=== PATIENT | female | born 1960 | race Caucasian/White ===

== ENCOUNTER → 2018-07-22 10:07 | Outpatient (CLI) | payer MEDICARE, SELFPAY | LOC: RAD 10:09 | PROVIDERS: Family Provider Family Medicine; PCP Family Medicine; Visit Provider Specialist | DX: M19.112 Post-traumatic osteoarthritis, left shoulder (principal) | CPT/HCPCS: 20610; 77002; Q9967; J0702 ==

== ENCOUNTER → 2018-10-17 09:22 | Outpatient (CLI) | payer MEDICARE, SELFPAY ==
--- NOTE | 2018-10-17 08:00 | RAD_ITS ---
PROCEDURE: Fluoroscopic guided left shoulder Injection DATE: October 17, 2018 INDICATION: Female, 58 years old. Chronic left shoulder pain. PHYSICIAN: Jaziel Rodríguez M.D. MEDICATIONS: 12 mg of betamethasone and 4 cc of 1% lidocaine. 2% lidocaine administered subcutaneously for local anesthesia. ACCESS SITE: Left shoulder. NEEDLE: 22-gauge spinal needle. FLUOROSCOPY TIME (if supplied): (1:36) minutes/seconds. One image was obtained. FINDINGS: The risks, benefits, and alternatives to the procedure were explained to the patient. The specific risks of bleeding, infection, and neurovascular injury were detailed and accepted. Witnessed informed consent was obtained. A 22-gauge spinal needle was positioned under radiographic fluoroscopic localization. Approximately 2 cc of Isovue-300 instilled for localization purposes. Medication was then injected. The patient tolerated the procedure well without any immediate complications. RAD/Inj/Asp Victor Manuel Jt Should/Hip/Knee IMPRESSION: 1. Successful fluoroscopic guided left shoulder injection. Electronically Signed: Jaziel Rodríguez MD at 11:08 EST Tel [phone], Service support ,
== END ==
LOC: RAD 09:25
PROVIDERS: Family Provider Family Medicine; PCP Family Medicine; Referring Provider Specialist; Visit Provider Specialist
DX: M19.112 Post-traumatic osteoarthritis, left shoulder (principal)
CPT/HCPCS: 20610; 77002; Q9967; J0702

== ENCOUNTER → 2021-10-04 09:59 | Outpatient (CLI) | payer MEDICARE, SELFPAY ==
--- NOTE | 2021-10-04 10:04 | ECHOD_ITS ---
Reason For Study: Palpitations Procedure This was a 2D Doppler, Color Flow transthoracic echocardiogram. Bubble study performed. Exam performed in department. Left Ventricle Normal LV size. Left ventricular systolic function is normal. The estimated ejection fraction is 60 %. No regional wall motion abnormalities noted. Right Ventricle Normal RV size. Normal systolic function. Atria Normal left atrium. Normal right atrium. Bubble contrast study negative for right to left interatrial shunt. Mitral Valve Normal mitral valve. Tricuspid Valve Normal tricuspid valve. Aortic Valve Trisinus/trileaflet aortic valve. Pulmonic Valve Normal pulmonic valve. Great Vessels Normal aortic root. The pulmonary artery is normal size. Normal inferior vena cava. Pericardium/Pleural No pericardial effusion. Medication 22 gauge I.V. with prn adaptor inserted into right arm. Performed a rapid injection of agitated mix of 9 cc saline and 1cc air to assess for atrial septal defect. MMode/2D Measurements & Calculations LVIDd: 3.4 cm IVSd: 1.1 cm LA dimension: 3.2 cm LVIDs: 2.2 cm LVPWd: 0.91 cm FS: 35.5 % LAV(MOD-bp): 31.5 ml LA A4 area: 12.4 cm2 RA A4 area: 7.9 cm2 LAV(MOD-bp) Indexed: 18.3 ml/m2 LAV(MOD-sp2): 29.0 ml LAV(MOD-sp4): 29.6 ml Doppler Measurements & Calculations Lat Peak E' Will: 11.2 cm/sec Med Peak E' Will: 5.9 cm/sec Ao V2 max: 131.0 cm/sec Ao max P.9 mmHg LV V1 max: 112.7 cm/sec PA V2 max: 102.1 cm/sec LV V1 max P.1 mmHg ECHO/Echo Complete Interpretation Summary Normal LV size. Left ventricular systolic function is normal. The estimated ejection fraction is 60 %. Bubble contrast study negative for right to left interatrial shunt. Ordering Physician: John De Dios Referring Physician: Dc Orourke Performed By: Quoc Barron RCS
== END ==
PROVIDERS: PCP Family Medicine; Referring Provider Internal Medicine Cardiovascular Disease; Visit Provider Internal Medicine Cardiovascular Disease
DX: R07.9 Chest pain, unspecified (principal); R94.31 Abnormal electrocardiogram [ECG] [EKG]; R00.2 Palpitations
CPT/HCPCS: 93225; 93226; 93306; A4216

== ENCOUNTER 2023-12-17 12:33 | Outpatient (CLI) | payer MEDICARE, SELFPAY ==
[2023-12-17 13:25] VITALS: BP 123/60; PULSE 91; RESP 16; TEMP 35.5; O2SAT 100; BMI 23.1
[2023-12-17 13:57] VITALS: BP 116/62; PULSE 91; RESP 16; TEMP 35.9
[2023-12-17 14:57] VITALS: BP 119/67; PULSE 88; RESP 16; TEMP 35.9; O2SAT 98
== END 2023-12-17 12:34 | disposition home or self-care (01) ==
LOC: MEDOUTP 12:35
PROVIDERS: PCP Family Medicine; Referring Provider Internal Medicine Hematology & Oncology; Visit Provider Internal Medicine Hematology & Oncology
DX: D64.81 Anemia due to antineoplastic chemotherapy (principal)
CPT/HCPCS: 36430; 86850; 86900; 86901; 86920; 86922; J7040; P9016; A4216